=== PATIENT | female | born 1960 | race Caucasian/White ===

== ENCOUNTER 2019-10-12 09:25 | Emergency (ER) | payer OTHER, BC, SELFPAY ==
[2019-10-12 09:43] VITALS: BP 120/58; PULSE 61; RESP 20; TEMP 36.8; O2SAT 99; BMI 36.0
--- NOTE | 2019-10-12 10:20 | ED.WOUNDLAC ---
HPI - Wound/Laceration General Chief Complaint: Wound/Laceration Stated Complaint: infection in lt vargas Time Seen by Provider: 10/12/19 09:59 Source: patient Mode of arrival: Ambulatory Limitations: no limitations History of Present Illness HPI narrative: Patient is a 58-year-old female with history of bariatric surgery hypertension and hypothyroid presenting with left leg wound. She says she initially cut it and had stitches on September 15 in [facility]. She had the stitches removed however she started noticing some redness and the wound was opening. She was seen at an emergency department 2 days ago in [facility] and given an antibiotic clindamycin. She says this morning she opened it up and there was gross pus and the wound seems to be gaping. She denies any body aches fever or chills. She says previously the Steri-Strips drawn and she could not tell how big it was. Onset (ago): day(s) Related Data Previous Rx's Medication Instructions Recorded cephalexin [Keflex] 500 mg PO TID 10 Days #30 cap 10/12/19 sulfamethoxazole-trimethoprim 1 tab PO BID 10 Days #20 tab 10/12/19 [Bactrim DS] Allergies Allergy/AdvReac Type Severity Reaction Status Date / Time cyclobenzaprine AdvReac Verified 10/12/19 09:52 [From Flexeril] gabapentin AdvReac Verified 10/12/19 09:52 Review of Systems Review of Systems ROS Unobtainable: All systems reviewed & are unremarkable except as noted in HPI and below Constitutional Constitutional: Denies chills, Denies fever(s), Denies lethargy and Denies weakness Cardiovascular Cardiovascular: Denies chest pain, Denies irregular heart rhythm, Denies lightheadedness, Denies palpitations, Denies dyspnea, Denies dyspnea on exertion and Denies orthopnea Respiratory Respiratory: Denies cough, Denies dyspnea, Denies dyspnea on exertion and Denies wheezing Gastrointestinal Gastrointestinal: Denies abdominal pain, Denies change in bowel habits, Denies diarrhea, Denies nausea and Denies vomiting Integumentary/Breasts Skin/Breast: Reports as per HPI Neurologic Neurologic: Denies weakness Endocrine Endocrine: Denies palpitations Allergic/Immunologic Allergic/Immunologic: Denies wheezing Patient History Medical History Hypertension (Acute) Hypothyroid (Acute) Surgical History Bariatric surgery status (Acute) Social History Smoking Status: Never smoker Smoking Status: Never smoker alcohol intake frequency: holidays/special occasions only Substance Use Type: does not use Exam Initial Vital Signs Initial Vital Signs: Vital Signs Temperature 98.2 F 10/12/19 09:43 Pulse Rate 61 10/12/19 09:43 Respiratory Rate 20 10/12/19 09:43 Blood Pressure 120/58 L 10/12/19 09:43 Pulse Oximetry 99 10/12/19 09:43 GENERAL: Well-appearing, well-nourished and in no acute distress. CARDIOVASCULAR: peripheral pulses in tact, cap refill <2 sec RESPIRATORY: No respiratory distress, speaks in full sentences without difficulty EXTREMITIES: Normal range of motion, no clubbing or edema. Neurovascularly intact NEUROLOGICAL: Cranial nerves II through XII grossly intact. Normal gait and speech. SKIN: Left anterior vargas has a 3 cm by 2-1/2 cm x 0.25 deep --open gaping pus wound with surrounding erythema. No streaking tender to touch around wound Course Orders Ordered: ED Orders 10/12/19 10:25 Wound Culture and Gram Stain Stat 10/12/19 10:35 Basic Metabolic Panel Stat Complete Blood Count AUTO DIFF Stat 10/12/19 11:00 Blood Culture Stat Vital Signs Vital signs: Vital Signs - 8 hr 10/12/19 09:43 10/12/19 11:38 Temperature 98.2 F Pulse Rate 61 63 Respiratory Rate 20 Blood Pressure 120/58 L Blood Pressure [Left Arm] 133/83 Pulse Oximetry 99 100 MDM - Wound/Laceration Lab Data Attestation: I reviewed the patient's lab results. Result diagrams: 10/12/19 10:35 10/12/19 10:35 Labs: Lab Results 10/12/19 10/12/19 Range/Units 10:35 10:35 WBC 4.8 (4.5-11.0) X10^3/uL RBC 4.97 (4.0-5.2) X10^6/uL Hgb 13.4 (12.0-16.0) g/dL Hct 40.3 (36-46) % MCV 81.2 (80-100) fL MCH 26.9 (26-34) PG MCHC 33.1 (30-36) % RDW 16.5 H (11.6-14.8) % Plt Count 214 (150-400) X10^3/uL Neut % (Auto) 64.1 (50-75) % Lymph % (Auto) 24.9 L (25-40) % [place] % (Auto) 6.6 (3-14) % Eos % (Auto) 3.3 (2-4) % Baso % (Auto) 1.1 (0-2) % Neut # (Auto) 3100 (1745-4287) /uL Lymph # (Auto) 1200 (4432-1948) /uL [place] # (Auto) 300 (0-900) /uL Eos # (Auto) 200 (0-450) /uL Baso # (Auto) 100 (0-100) /uL Sodium 140 (137-145) mmol/L Potassium 4.2 (3.4-5.1) mmol/L Chloride 106 (98-107) mmol/L Carbon Dioxide 27 (22-32) mmol/L BUN 14 (7-17) mg/dL Creatinine 0.72 (0.52-1.04) mg/dL Estimated GFR > 60.0 (>60) mL/min BUN/Creatinine Ratio 19.4 (6-22) Glucose 96 (70-100) mg/dL Calcium 9.2 (8.4-10.2) mg/dL MDM Narrative Medical decision making narrative: Patient is afebrile she appears well she is talkative does not appear septic she does not have leukocytosis. Wound culture and blood cultures are pending. I will change her antibiotics from clindamycin to Bactrim and Keflex. Recommend that she follow-up with wound care in her home state or I recommend she make an appointment locally. Given her strict return precautions. Discharge Plan Departure Patient Disposition: Home Clinical Impression: Leg wound, left Qualifiers: Encounter type: initial encounter Qualified Code(s): S81.802A - Unspecified open wound, left lower leg, initial encounter Discharge Date/Time: 10/12/19 11:44 Instructions: DI for Wound Infection Activity Restrictions/Additional Instructions: *You have been diagnosed with left leg wound *What to do: Keep area clean and dry with soap and water. Be sure to look at wound every day. Keep bandage on *Continue to take medications as directed STOP CLINDAMYCIN Bactrim 1 tablet twice a day for 10 days Keflex 500 mg 3 times a day for 10 days *Follow up with your primary care provider in 2-3 days *Return to ER if you should have increasing redness, increasing pus, foul smell, fever body ache or any new, worsening or concerning symptoms Prescriptions: New sulfamethoxazole-trimethoprim [Bactrim DS] 800-160 mg tablet 1 tab PO BID 10 Days Qty: 20 RF: 0 cephalexin [Keflex] 500 mg capsule 500 mg PO TID 10 Days Qty: 30 RF: 0 Referrals: Eduardo Coleman MD [Physician] -
[2019-10-12 10:55] LABS: Add Manual Diff / Slide Review NO; Basophils Absolute Auto 100 /uL (0-100); Basophils Percent Auto 1.1 % (0-2); Eosinophils Absolute Auto 200 /uL (0-450); Eosinophils Percent Auto 3.3 % (2-4); Hematocrit 40.3 % (36-46); Hemoglobin 13.4 g/dL (12.0-16.0); Lymphocytes Absolute Auto 1200 /uL (1100-4500); Lymphocytes Percent Auto 24.9 % (25-40); Mean Corpuscular HGB Conc 33.1 % (30-36); Mean Corpuscular Hemoglobin 26.9 PG (26-34); Mean Corpuscular Volume 81.2 fL (80-100); Monocytes Absolute Auto 300 /uL (0-900); Monocytes Percent Auto 6.6 % (3-14); Neutrophils Absolute Auto 3100 /uL (1500-7000); Neutrophils Percent Auto 64.1 % (50-75); Platelet Count 214 X10^3/uL (150-400); Red Blood Cell Count 4.97 X10^6/uL (4.0-5.2); Red Cell Distribution Width 16.5 % (11.6-14.8); White Blood Cell Count 4.8 X10^3/uL (4.5-11.0)
[2019-10-12 10:58] LABS: BUN Creatinine Ratio 19.4 (6-22); Blood Urea Nitrogen 14 mg/dL (7-17); Calcium 9.2 mg/dL (8.4-10.2); Carbon Dioxide 27 mmol/L (22-32); Chloride 106 mmol/L (98-107); Estimated Glomerular Filt Rate > 60.0 mL/min (>60); Glucose 96 mg/dL (70-100); HEMOLYSIS < 15 (0-50); Potassium 4.2 mmol/L (3.4-5.1); Sodium 140 mmol/L (137-145)
[2019-10-12 11:38] VITALS: BP 133/83; PULSE 63; O2SAT 100
== END 2019-10-12 11:44 | disposition home or self-care (01) ==
PROVIDERS: Emergency Provider Emergency Medicine
DX: S81.802A Unspecified open wound, left lower leg, initial encounter (principal)
CPT/HCPCS: 36415; 80048; 85025; 87040; 87070; 87075; 87077; 87185; 87186; 87205; 99283; 99284

== ENCOUNTER → 2019-10-14 12:58 | Outpatient (CLI) | payer OTHER, BC, SELFPAY | PROVIDERS: Referring Provider Emergency Medicine; Visit Provider Family Medicine | DX: S81.802A Unspecified open wound, left lower leg, initial encounter (principal); L08.9 Local infection of the skin and subcutaneous tissue, unspecified | CPT/HCPCS: 11042; 99203; 99213 ==